=== PATIENT | male | born 1975 | race Caucasian/White ===

== ENCOUNTER → 2022-10-09 | Outpatient (CLI) | payer BC | END | disposition home or self-care (01) | LOC: RAH 12:57 | PROVIDERS: ATTEND Student in an Organized Health Care Education/Training Program | DX: R92.2 Inconclusive mammogram (principal) | CPT/HCPCS: 77066 ==

== ENCOUNTER → 2025-02-06 | Outpatient (CLI) | payer BC ==
--- NOTE | 2025-02-06 16:31 | HMCIMG ---
Exam Type: CHEST 2VWS Clinical Information: COUGH Comparison: None Findings: The lungs are clear of infiltrates. The heart is normal in size. The bony and soft tissue structures of the chest are unremarkable. Impression: Clear lungs.
== END | disposition home or self-care (01) ==
LOC: RAH 14:42
PROVIDERS: ATTEND Radiology Diagnostic Radiology
DX: R05.1 Acute cough (principal)
CPT/HCPCS: 71046